=== PATIENT | male | born 1960 | race Caucasian/White ===

== ENCOUNTER 2017-03-25 08:18 | Emergency (ER) | payer OTHER ==
[~2017-03-25] VITALS: Ht 182.9 cm; Wt 100.0 kg
[2017-03-25 08:23] VITALS: BP 160/108; PULSE 83; RESP 18; TEMP 98.1; O2SAT 97
[2017-03-25] MEDS ORDERED: MELO7.5T27 PO (08:43)
[2017-03-25] MEDS ORDERED: ASPI-516 CHEW (08:43)
[2017-03-25] MEDS ORDERED: FENO1TAB46 PO (08:43)
[2017-03-25] MEDS ORDERED: CENTCHW4 CHEW (08:43)
[2017-03-25] MEDS ORDERED: METO50TA PO (08:43)
[2017-03-25] MEDS ORDERED: FENO160T PO (08:43)
[2017-03-25] MEDS ORDERED: IBUPROFEN 800 MG TAB PO ONE (09:15)
--- NOTE | 2017-03-25 09:30 | PD ---
HPI Chief Complaint: Musculoskeletal Complaint Time Seen by Provider: 09:06 Travel History International Travel<30 days: No Contact w/Intl Traveler<30days: No Traveled to known affect area: No History of Present Illness HPI 56-year-old male presents to the ED for evaluation of right knee pain, onset after he fell last night. He is unsure of how he landed. Pain is 4/10 at rest , 6/10 with weightbearing, 9/10 with any lateral motion. No alleviating factors reported. He endorses a little tingling in the leg. He states that the knee feels unstable on this event might give way. He endorses previous injury to the area has never been diagnosed. He treated with OTC NSAIDs last night with no improvement of symptoms. He drove himself to the ED. PFSH Past Medical History Heart Rhythm Problems: Yes (irregular) High Cholesterol: Yes Hypertension: Yes Tetanus Vaccination: > 5 Years Influenza Vaccination: No Past Surgical History Abdominal Surgery: Yes Appendectomy: Yes Other Surgery: Yes (r hernia) Social History Alcohol Use: Yes (4-5 beers daily) Tobacco Use: No Allergies-Medications (Allergen,Severity, Reaction): Coded Allergies: No Known Allergies (Unverified , 03/25/17) Reported Meds & Prescriptions Reported Meds & Active Scripts Active Tramadol (Tramadol HCl) 50 Mg Tab 50 Mg PO Q6H PRN Ibuprofen 800 Mg Tab 800 Mg PO Q8H Reported Meloxicam 7.5 Mg Tab 7.5 Mg PO DAILY Centrum (Multiple Vitamins W/ Minerals) 1 Chew 1 Tab CHEW DAILY Aspirin 81 Mg Chew 81 Mg CHEW DAILY Fenofibrate 160 Mg Tab 160 Mg PO DAILY Metoprolol Tartrate 50 Mg Tab 50 Mg PO BID Review of Systems Except as stated in HPI: all other systems reviewed are Neg Physical Exam Narrative GENERAL: Well-nourished, well-developed white male in no acute distress. SKIN: Focused skin assessment warm/dry. HEAD: Normocephalic. EYES: No scleral icterus. No injection or drainage. NECK: Supple, trachea midline. No JVD or lymphadenopathy. CARDIOVASCULAR: Regular rate and rhythm without murmurs, gallops, or rubs. RESPIRATORY: Breath sounds equal bilaterally. No accessory muscle use. GASTROINTESTINAL: Abdomen soft, non-tender, nondistended. MUSCULOSKELETAL: No cyanosis, or edema. FOCUSED RIGHT LOWER EXTREMITY EXAM: 2+ DP pulse. Tender to palpation of the anterior and posterior aspects of the knee. No patellar balloting noted. Tender to palpation of the joint lines of the knee. Pain elicited with flexion. He extends to 0 and flexes to approximately 90. Positive varus/ valgus stress testing. Negative anterior drawer testing. Neurovascularly intact distally. BACK: Nontender without obvious deformity. No midline tenderness. No CVA tenderness. Data Data Last Documented VS Vital Signs Date Time Temp Pulse Resp B/P (MAP) Pulse Ox O2 Delivery O2 Flow Rate FiO2 03/25/17 08:23 98.1 83 18 160/108 (125) 97 Room Air Orders Orders Ibuprofen (Motrin) (03/25/17 09:15) Knee, Complete (4vws) (03/25/17 09:14) Ice/Cold Pack (03/25/17 09:14) ^ Knee Immobilizer (03/25/17 09:14) Crutches (03/25/17 09:14) Radiology Film Requests (03/25/17 ) Immobilizer Knee 20 Inch (03/25/17 ) Ed Discharge Order (03/25/17 09:45) MDM Medical Decision Making Medical Screen Exam Complete: Yes Emergency Medical Condition: Yes Differential Diagnosis Contusion versus fracture versus avulsion fracture versus internal derangement versus other Narrative Course 56-year-old male presents to the ED for evaluation of right knee pain, onset after he fell last night. He endorses a little tingling in the leg. He states that the knee feels unstable on this event might give way. He endorses previous injury to the area that has never been diagnosed. Vitals reviewed. Patient's hypertensive on presentation. He has a history of this. Physical exam reveals TTP of the anterior and posterior aspects of the knee as well as the joint lines. No patellar balloting noted. Pain elicited with flexion. He extends to 0 and flexes to approximately 90. Positive varus/valgus stress testing. Negative anterior drawer testing. Neurovascularly intact distally. Icepack was applied. Patient was administered a milligram ibuprofen. X-ray reveals no acute bony injury. I suspect internal derangement. Patient was placed in a knee immobilizer and provided a set of crutches. He is instructed to rest, ice, elevate the extremity. He is provided a short course of NSAIDs and tramadol for pain greater than 6. He has a follow-up with an outside orthopedist tomorrow. He is provided a copy of his x-ray on CD. He indicated understanding of instructions and is agreeable to the care plan. He is stable and discharged home. Diagnosis Primary Impression: Internal derangement of right knee Referrals: Orthopedist Patient Instructions: General Instructions, Knee Immobilizer (ED), Knee Sprain (ED) Additional Instructions: Rest, ice, elevate the extremity. Apply ice no longer than 10-15 minutes per hour a few times a day. 800 mg ibuprofen up to 3 times a day as needed for pain 1 through 6. Tramadol as needed for pain greater than 6. Do not drive while taking tramadol. Weight-bearing as tolerated. Wear the knee immobilizer until evaluated by the orthopedist. Follow up with orthopedist as planned. Return to the ED for any urgent or emergent medical condition. Med/Other Pt SpecificInfo: Prescription(s) given Scripts Tramadol (Tramadol) 50 Mg Tab 50 MG PO Q6H Y for PAIN, #12 TAB 0 Refills Prov: Alejandro Jenkins MD 03/25/17 Ibuprofen (Ibuprofen) 800 Mg Tab 800 MG PO Q8H, #15 TAB 0 Refills Prov: Alejandro Jenkins MD 03/25/17 Disposition: 01 DISCHARGE HOME Condition: Stable Susana Pittman Mar 25, 2017 09:30
[2017-03-25] MEDS ORDERED: IBUP1TAB7 PO (09:32)
[2017-03-25] MEDS ORDERED: TRAM50TA PO (09:32)
--- NOTE | 2017-03-25 09:35 | RADRPT ---
EXAM DATE/TIME: 03/25/2017 09:22 [facility] COMPARISON: No previous studies available for comparison. INDICATIONS : Right knee pain post fall. MEDICAL HISTORY : None. SURGICAL HISTORY : None. ENCOUNTER: Initial ACUITY: 2 days PAIN SCORE: 3/10 LOCATION: Right medial knee FINDINGS: Four view examination of the right knee demonstrates no evidence of fracture or dislocation. Bony mi neralization is normal. The articular surfaces are intact. The suprapatellar soft tissues have a no rmal configuration. CONCLUSION: No acute bony injury Sahil Gill MD on March 25, 2017 at 9:31 Board Certified Radiologist. This report was verified electronically.
[2017-03-25 10:30] VITALS: BP 155/92; RESP 18
== END 2017-03-25 10:35 | disposition home or self-care (01) ==
LOC: PHED 08:18
DX: M23.91 Unspecified internal derangement of right knee (principal); I10 Essential (primary) hypertension; E78.00 Pure hypercholesterolemia, unspecified; W19.XXXA Unspecified fall, initial encounter; Z79.82 Long term (current) use of aspirin; Z79.899 Other long term (current) drug therapy
CPT/HCPCS: 73564; 99283; E0113; L1830

== ENCOUNTER → 2017-06-03 | Outpatient (CLI) | payer OTHER ==
[~2017-06-03] MED LIST: AMLO5TAB2 PO; ASPI-516 CHEW; ASPI325T33 PO; CENTCHW4 CHEW; FENO160T PO; HYDR-3583 PO; IBUP1TAB7 PO; MELO7.5T27 PO; METO50TA PO; TRAM50TA PO; ZOFR4TAB PO
--- NOTE | 2017-06-04 00:08 | EKG ---
Date Performed: 06/03/2017 Time Performed: 08:28:03 PTAGE: 56 years EKG: Sinus rhythm NORMAL ECG NO PREVIOUS TRACING DOCTOR: Mary De Paz Interpretating Date/Time 06/04/2017 00:01:32
== END ==
LOC: CPRE 08:11
PROVIDERS: ATTEND Orthopaedic Surgery
DX: Z01.810 Encounter for preprocedural cardiovascular examination (principal)
CPT/HCPCS: 93005

== ENCOUNTER → 2017-06-05 | Day surgery (SDC) | payer OTHER ==
[~2017-06-05] VITALS: Ht 182.9 cm; Wt 97.9 kg
[~2017-06-05] MED LIST changes: +*morphine SULFATE 4 MG/ML PERIprocedure ONLY ONE; +ACETAMINOPHEN 1000 MG/100 ML 100 ML IV ONE; +ACETAMINOPHEN/HYDROcodone 325 MG/5 MG TAB PO PRN; -ASPI-516 CHEW; +CHLORHEXIDINE GLUCONATE 2 % 1 PACK (2 CLOTHS) TOPICAL PRN; +CHLORHEXIDINE GLUCONATE 4% SOLN 120 ML BTL TOPICAL SCH; +DEXAMETHASONE SOD PHOS 4 MG/ML VIAL IV ONE; +DO NOT ADM ANY ANTICOAGULANT DRUGS PRN; +FAMOTIDINE 20 MG/2 ML VIAL ONE; -FENO160T PO; -IBUP1TAB7 PO; +INSULIN HUMAN REGULAR 1,000 UNITS/10 ML VIAL SQ PRN; +KETOROLAC TROMETHAMINE 30 MG/ML (IVP) VIAL IV PUSH ONE; +KETOROLAC TROMETHAMINE 30 MG/ML (IVP) VIAL IVP ONE; +LIDOCAINE HCL 1% PF 5 ML SYRINGE OTHER ONE; -MELO7.5T27 PO; -METO50TA PO; +METOPROLOL TARTRATE 25 MG TAB PO PRN; +MIDAZOLAM HCL 2 MG/2 ML VIAL ONE; +MORPHINE SULFATE 4 MG/ML INJ IV PUSH PRN; +ONDANSETRON HCL 4 MG/2 ML VIAL IV ONE; +ONDANSETRON HCL 4 MG/2 ML VIAL IV PUSH PRN; +POVIDONE IODINE 5% (ANTISEPSIS KIT) 4 APPLICATIONS EACH NARE PRN; +POVIDONE IODINE 7.5% SCRUB 118 ML BOTTLE TOPICAL SCH; +PROPOFOL 200 MG/20 ML AMP IV ONE; +SODIUM CHLORID 0.9% 500 ML IV PRN; -TRAM50TA PO
[2017-06-05] MEDS: LACTATED RINGER'S 1000 ML IV PRN ×2 (09:07→10:01)
--- NOTE | 2017-06-05 11:50 | MP ---
cc: Da Rivera MD DATE OF OPERATION: 06/05/2017 PREOPERATIVE DIAGNOSIS: 1. Tear, medial meniscus, right knee. 2. Osteoarthritis, right knee. POSTOPERATIVE DIAGNOSIS: 1. Tear, medial meniscus, right knee. 2. Osteoarthritis, right knee. 3. Loose bodies, right knee. SURGEON: Dr. Rivera. ANESTHESIA: General. OPERATIVE PROCEDURE: Arthroscopic surgery, right knee consisting of the followin. Partial medial meniscectomy. 2. Removal of loose bodies. 3. Chondroplasty. TECHNIQUE: After induction of general anesthesia, the right lower extremity was placed in the leg vanegas with a tourniquet underneath and the right lower extremity thoroughly prepped with alcohol and ChloraPrep and draped in routine fashion. After application Esmarch bandage, tourniquet was inflated to 300 mmHg. The arthroscope was introduced through a stab incision in the lower pole of the patella lateral to the patellar tendon. The joint was insufflated with saline. An irrigation portal established superior medially. A working portal established inferior medially. Systematic visualization of the joint carried out. There was grade 2 chondromalacia of the patella with no full thickness lesion. There was some full-thickness cartilage loss in dispersed areas of the femoral trochlea. There was an inflamed plica. Patellofemoral tracking, however, was normal. Lateral compartment was normal. ACL showed some minor changes, but otherwise intact. Medial compartment showed a horizontal tear of the medial meniscus that was flipped over 90 degrees and stuck between the tibia and femur. This was probed. There was a more extensive tear of the entire posterior horn. A partial medial meniscectomy was carried out using basket forceps and a small shaver, as well as the ArthroCare system. A stable balanced rim was obtained. There were 2 loose bodies both cartilaginous, one about 6 x 5 mm and the other one about 4 mm in diameter. These were removed. Chondroplasty of the medial femoral condyle and the trochlear notch of the femur were carried out with the ArthroCare. The joint was irrigated copiously with saline solution and manipulated to make sure there were no other loose bodies. The portals were closed with interrupted vertical mattress nylon sutures. Dressings were applied with Xeroform, 4 x 4s, ABD, Sof-Rol and an Aris bandage. The patient transferred to the recovery room in satisfactory condition. The patient tolerated the procedure well. Transfusions and complications, none. POSTOPERATIVE CONDITION: Satisfactory. PROGNOSIS: Good for recovery of symptoms. He does have some chondromalacia/osteoarthritis, but the meniscectomy should help him quite a bit. MD THU Faith/BONG , 11:28 AM , 11:48 AM
[2017-06-05 12:24] VITALS: BP 125/83; PULSE 72; RESP 18; TEMP 97.8; O2SAT 100
== END | disposition home or self-care (01) ==
LOC: HSDC 07:30
PROVIDERS: ATTEND Orthopaedic Surgery
DX: S83.241A Other tear of medial meniscus, current injury, right knee, initial encounter (principal); M17.11 Unilateral primary osteoarthritis, right knee
CPT/HCPCS: 01400; 29881; J0131; J0690; J1100; J1885; J2250; J2270; J2405; J3010; J7120